=== PATIENT | female | born 1990 | race Caucasian/White ===

== ENCOUNTER 2017-02-16 23:52 | Emergency (ER) | payer SELFPAY ==
[~2017-02-16] VITALS: Ht 160 cm; Wt 53.8 kg
[2017-02-17] MEDS ORDERED: FIORICET 50-301 EAC1 PO (01:08)
[2017-02-17] MEDS ORDERED: ZOFRAN ODT8 MG PO (01:08)
[2017-02-17] MEDS ORDERED: FLONASE16 G1 BOTH NARES (01:13)
[2017-02-17] MEDS ORDERED: MUCINEX D ER T1 EACH PO (01:13)
[2017-02-17 01:39] VITALS: BP 130/75
== END 2017-02-17 01:40 | disposition home or self-care (01) ==
LOC: EME 23:52
DX: G43.009 Migraine without aura, not intractable, without status migrainosus (principal); K58.9 Irritable bowel syndrome, unspecified; K50.90 Crohn's disease, unspecified, without complications
CPT/HCPCS: 99281; 99284; J1885